=== PATIENT | female | born 1935 | race Caucasian/White ===

== ENCOUNTER → 2018-05-08 13:27 | Outpatient (CLI) | payer MEDICARE, OTHER ==
[2014-06-04 09:59] VITALS: BMI 26.4
[~2018-05-08 13:27] MED LIST: ANTIVERT25 MG PO; BONIVA150 MG PO; COUMADIN3 MG PO; COUMADIN4 MG PO; DYAZIDE 37.5/251 CAP PO; FISH OIL 1,2001 CAP PO; HYDROCODON-ACE1 EAC7 PO; LEXAPRO5 MG PO; MULTIPLE VITAMI1 TA1 PO; NORVASC5 MG PO; OYST-CAL-5001 TAB PO; PROTONIX40 MG PO; TRAVOPROST 0.02.5 ML LEFT EYE; VALIUM 2 MG TAB2 MG PO; ZETIA10 MG PO
[2018-05-08 14:27] LABS: INR 1.68 (0.85-1.17); PROTIME 19.2 SECONDS (11.6-15.0)
== END | disposition home or self-care (01) ==
LOC: D.LABREF 13:27
PROVIDERS: Emergency Medicine
DX: Z51.81 Encounter for therapeutic drug level monitoring (principal); Z79.01 Long term (current) use of anticoagulants; I82.409 Acute embolism and thrombosis of unspecified deep veins of unspecified lower extremity

== ENCOUNTER → 2018-05-19 11:46 | Outpatient (CLI) | payer MEDICARE, OTHER ==
[2014-06-04 09:59] VITALS: BMI 26.4
[2018-05-19 13:02] LABS: INR 2.38 (0.85-1.17); PROTIME 25.3 SECONDS (11.6-15.0)
== END | disposition home or self-care (01) ==
LOC: D.LABREF 11:46
PROVIDERS: Emergency Medicine
DX: Z51.81 Encounter for therapeutic drug level monitoring (principal); Z79.01 Long term (current) use of anticoagulants

== ENCOUNTER → 2018-05-26 13:18 | Outpatient (CLI) | payer MEDICARE, OTHER ==
[2014-06-04 09:59] VITALS: BMI 26.4
[2018-05-26 17:20] LABS: INR 2.55 (0.85-1.17); PROTIME 26.7 SECONDS (11.6-15.0)
== END | disposition home or self-care (01) ==
LOC: D.LABREF 13:18
PROVIDERS: Emergency Medicine
DX: Z51.81 Encounter for therapeutic drug level monitoring (principal); Z79.01 Long term (current) use of anticoagulants

== ENCOUNTER → 2018-06-25 12:47 | Outpatient (CLI) | payer MEDICARE, OTHER ==
[2014-06-04 09:59] VITALS: BMI 26.4
[2018-06-25 13:26] LABS: INR 2.45 (0.85-1.17); PROTIME 25.9 SECONDS (11.6-15.0)
== END | disposition home or self-care (01) ==
LOC: D.LABREF 12:47
PROVIDERS: Emergency Medicine
DX: Z51.81 Encounter for therapeutic drug level monitoring (principal); Z79.01 Long term (current) use of anticoagulants

== ENCOUNTER 2018-10-19 17:29 | Inpatient (IN) | payer MEDICARE, OTHER ==
--- NOTE | 2018-10-19 17:15 | NUR ---
ADMITTED TO [facility] LONG TERM UNIT VIA STRETCHER PER EMS FROM [facility]. ADMITTED FOR SUICIDAL THREAT. " I AM GOING TO JUMP OUT OF 3RD FLOOR WINDOW." SHE WANTS TO GO BE WITH HIM IN [facility]. SHE IS LEGALLY BLIND, BILATERALLY. SHE WEARS PARTIALS ON UPPER AND LOWER. CODE STATUS IS DNR WITH PAPERS IN FRONT OF CHART. POA IS ANEL GOLD = [phone] CODE WORD= [place].
[2018-10-19] MEDS ORDERED: LIDODERM 5 %1 PATCH TRANSDERM (19:57)
[2018-10-19] MEDS ORDERED: DORZOLAMIDE LEFT EYE (20:06)
[2018-10-19] MEDS ORDERED: TIMOLOL LEFT EYE (20:06)
[2018-10-19] MEDS ORDERED: TAPAZOLE 5 MG TA5 MG PO (20:08)
[2018-10-19] MEDS ORDERED: ACETAMINOPHEN500 M1 PO (20:09)
[2018-10-19] MEDS ORDERED: MIRALAX17 GM PO (20:10)
[2018-10-19] MEDS ORDERED: ZOFRAN4 MG PO (20:11)
[2018-10-19] MEDS ORDERED: TRAVATAN Z2.5 ML LEFT EYE (20:12)
[2018-10-19] MEDS ORDERED: [UNRECOGNIZED DRUG - OTHER] EACH EYE (20:15)
--- NOTE | 2018-10-19 21:29 | NUR ---
RECEIVED IN DAYROOM. WHEELING AROUND IN WHEELCHAIR. CALM AND COOPERATIVE WITH CARE AND ASSESSMENT. DENIES THOUGHTS OF SELF HARM AT THIS TIME. STATES PEOPLE THINKING SHE WANTED TO COMMIT SUICIDE WAS A MISTAKE. STATES SHE ONLY WANTED TO LOOK OUT THE WINDOW AND WASNT TRYING TO JUMP OUT OF WINDOW. REDIRECT AND REORIENT NEEDED. GETTING READY FOR BED AT THIS TIME. CONTINUE PLAN OF CARE.
[2018-10-20 02:22] VITALS: BP 128/76
[2018-10-20 06:33] VITALS: BP 128/76; BMI 25.2
[2018-10-20 06:47] LABS: BASOPHILS 0.5 % (0-2); EOSINOPHILS 3.6 % (0-7); HEMATOCRIT 45.4 % (36.0-48.0); HEMOGLOBIN 15.2 g/dL (12-16); LYMPHOCYTES 36.6 % (15-50); MCH 30.3 pg (26.0-34.0); MCHC 33.5 g/dL (31.0-37.0); MCV 90.6 fL (80.0-100.0); MEAN PLATELET VOLUME 11.1 fL (7.4-10.4); MONOCYTES 10.7 % (2-11); NEUTROPHILS 48.6 % (40-80); RBC 5.01 10x6/uL (4.00-5.40); WBC 5.8 10x3/uL (4.8-10.8)
[2018-10-20 07:02] LABS: PLATELET COUNT 243 10x3/uL (130-400)
[2018-10-20 07:17] LABS: INR 1.96 (0.85-1.17); PROTIME 21.7 SECONDS (11.6-15.0)
[2018-10-20 07:38] LABS: ALBUMIN 3.6 g/dL (3.4-5.0); ANION GAP 14.5 mmol/L (8-16); BILIRUBIN - TOTAL 0.47 mg/dL (0.2-1.3); CALCIUM 9.3 mg/dL (8.5-10.1); CARBON DIOXIDE 29.2 mmol/L (21.0-32.0); CHOL - HDL RATIO 3.3 ratio (2.3-4.1); CREATININE - SERUM 0.8 mg/dL (0.6-1.3); POTASSIUM - SERUM 3.7 mmol/L (3.5-5.1); PROTEIN - SERUM 7.6 g/dL (6.4-8.2); THYROID STIMULATING HORMONE 1.21 uIU/mL (0.36-3.74)
[2018-10-20 07:56] VITALS: BMI 25.2
[2018-10-20 08:00] VITALS: BP 147/70
[2018-10-20 09:38] VITALS: BMI 25.1
--- NOTE | 2018-10-20 23:52 | NUR ---
RECEIVED IN PATIENT ROOM. GETTING READY FOR BED. CALM AND COOPERATIVE WITH CARE AND ASSESSMENT. DENIES THOUGHTS OF SELF HARM. REDIRECT AND REORIENT NEEDED. RESTING IN BED WITH EYES CLOSED AT THIS TIME. CONTINUE PLAN OF CARE.
[2018-10-21 05:11] LABS: VITAMIN D 25 HYDROXY 44.9 ng/mL (30.0-100.0)
[2018-10-21 07:17] LABS: RAPID PLASMA REAGIN Non Reactive (Non Reactive)
[2018-10-21 09:00] VITALS: BP 139/68
--- NOTE | 2018-10-21 12:50 | PSY ---
PATIENT NAME:MARÍA PEREZ MEDICAL RECORD: [id number] : 33 LOCATION:VernaTOOTIE Rehman5 ADMISSION DATE: 10/19/18 ACCOUNT: [id number] PSYCHIATRIC EVALUATION DATE OF EVALUATION: 10/20/18 IDENTIFYING DATA: The patient is 83 years old and she is admitted to the hospital on a voluntary basis. CHIEF COMPLAINT: None. HISTORY OF PRESENT ILLNESS: The patient lives at [facility]. The staff at [facility] report that she wanted to jump out of the second story window. She says that they quote her as saying that she was going to jump out of the third story window and that she wanted to go be with her in [facility]. The patient denies this. She says that she opened a window just to look out at the day and that she has never made such a statement. She endorses numerous neurovegetative depressive symptoms. She denies that she would seek to harm herself. PAST MEDICAL HISTORY: Significant for glaucoma in both eyes, which is obviously quite distressing to her. She has a history of DVTs or pulmonary embolism, urinary tract infection, lumbar radiculopathy, spinal stenosis, osteoporosis, and angina. She also has a history of hypertension and hyperlipidemia. PAST PSYCHIATRIC HISTORY: Significant for depression, which has been treated as an outpatient. FAMILY HISTORY: Noncontributory. ALLERGIES: PENICILLIN, CODEINE, AND LIPITOR. MEDICATIONS: Include warfarin, lidocaine patch, Tapazole, Norvasc, omega 3 fish oil, Zetia, Protonix, multiple eye drops. SOCIAL HISTORY: The patient is originally from [facility]. Her [place] 8 years ago. They have no children. All of her other relatives are in [facility] and virtually all are . She has no close friends, family, or relatives and has lived in the assisted living center at [facility] for 5-6 years. MENTAL STATUS EXAMINATION: The patient is awake, alert and oriented to person, place and somewhat to time and situation. Her mood is depressed. Her affect is constricted. Thought processes are circumstantial. Memory, concentration, and abstraction abilities are moderately impaired and she denies that she would actively seek to harm herself or others as well as any overt psychotic symptoms. ASSETS: Stable living environment. LIABILITIES: Limited insight. DIAGNOSTIC IMPRESSION: AXIS I: Major depression, severe, recurrent without psychotic features. AXIS II: None. AXIS III: Hypertension, macular degeneration, glaucoma, hypercholesterolemia, peripheral vascular disease. AXIS IV: Moderate. AXIS V: Global assessment of functioning is 30. PLAN: At this time, the patient is admitted to the hospital secondary to suicidal statements. She denies them. She will be started on antidepressant medication. Her long-term prognosis is guarded. TRANSINT:[id number] Voice Confirmation ID: [id number] DOCUMENT ID: [id number] BRETT DEMPSEY MD at 1250 CC: [id number] DICTATION DATE: 10/20/18 1140 MACHINE OPERATORS: 10/20/18 1159 ADM IN [place] [id number] [place] [id number]
[2018-10-21 16:11] LABS: FOLATE (FOLIC ACID) - SERUM >20.0 ng/mL (>3.0)
--- NOTE | 2018-10-21 18:32 | NUR ---
PATIENT AWAKE AND ALERT X2. CALM AND COOPERATIVE WITH CARE AND ASSESSMENT. COMPLIANT WITH TAKING MEDS. DENIES SI. HARM OF SELF. REDIRECT AND REORIENT NEEDED. WILL CONTINUE PLABN OF CARE.
[2018-10-21 20:00] VITALS: BP 135/73
--- NOTE | 2018-10-21 21:02 | NUR ---
RECEIVED IN DAYROOM. WATCHING TV. CALM AND COOPERATIVE WITH CARE AND ASSESSMENT. DENIES THOUGHTS OF SELF HARM. REDIRECT AND REORIENT NEEDED. CONTINUES TO SIT AND WATCH TV AT THIS TIME. CONTINUE PLAN OF CARE.
[2018-10-22 08:37] VITALS: BP 137/96
--- NOTE | 2018-10-22 15:03 | PN ---
PATIENT:MARÍA PEREZ MEDICAL RECORD: [id number] LOCATION:FABIANA Rehman ADMISSION DATE: 10/19/18 PROGRESS NOTE DATE OF SERVICE: 10/21/2018 SUBJECTIVE: The patient's case was discussed with staff. She has no new complaint. OBJECTIVE: The patient denies intent to harm herself or others. She tolerates her medicines well. She has a depressed mood but no active thoughts of harming herself or others. ASSESSMENT: Major depression. PLAN: The patient will be maintained on current medicines, which I have reviewed. Her long-term prognosis is guarded. I am going to start her on a low dose of Lexapro for its antidepressant effect. TRANSINT:[id number] Voice Confirmation ID: [id number] DOCUMENT ID: [id number] BRETT DEMPSEY MD at 1503 CC: [id number] DICTATION DATE: 10/21/18 1531 VACUUM APPLICATOR OPERATOR: 10/21/18 2330 ADM IN [place] [id number] [place] [address]
--- NOTE | 2018-10-22 15:35 | NUR ---
ORIENTED X 3.DENIES WANTING TO HURT HERSELF,BUT WILL TELL STAFF IF SHE HAS THOUGHTS OF HARMING SELF.IS COMPLIANT WITH STAFF AND MEDS.WILL CONTINUIE WITH PLAN OF CARE,MONITOR FOR CHANGES AND SAFETY.
[2018-10-22 20:00] VITALS: BP 130/61
[2018-10-23 07:57] LABS: INR 1.56 (0.85-1.17)
[2018-10-23 09:26] VITALS: BP 141/72
--- NOTE | 2018-10-23 10:00 | NUR ---
RECEIVED PATIENT IN DINING ROOM FOR B'FAST, ALERT, CALM, COOPERATIVE, TAKES MEDS WHOLE. MEDS ADMIN PER ORDERS WITH COMPLETE MED COMPLIANCE NOTED. NO S/S ADVERSE REACTION TO MEDS. COOPERATIVE WITH GROUP THERAPY AND STAFF REQUESTS. NO AGGRESSION NOTED. CONT POC INCLUDING MEDS AND GROUP THERAPY DIRECTED.
--- NOTE | 2018-10-23 15:53 | PN ---
PATIENT:MARÍA PEREZ MEDICAL RECORD: [id number] LOCATION:FABIANA Rehman ADMISSION DATE: 10/19/18 PROGRESS NOTE DATE OF SERVICE: 10/22/2018 SUBJECTIVE: The patient's case was discussed with staff. She has no new complaint. OBJECTIVE: The patient denies intent to harm herself or others. She is tolerating her medicines well. ASSESSMENT: Major depression. PLAN: The patient has no suicidal thoughts. She has received her first dose of antidepressant and tolerated it well. I anticipate she can be transitioned out of the hospital soon. TRANSINT:[id number] Voice Confirmation ID: [id number] DOCUMENT ID: [id number] BRETT DEMPSEY MD at 1553 CC: [id number] DICTATION DATE: 10/22/18 1600 ECDIS N NAVIGATION OPERATOR: 10/22/18 1725 ADM IN [place] [id number] [place] [address]
--- NOTE | 2018-10-23 16:17 | NUR ---
Called Dr. Calderon to see about getting an H&P for Dr. Black about the coumadin.
[2018-10-23 20:03] VITALS: BP 136/67
--- NOTE | 2018-10-23 21:35 | NUR ---
PATIENT IS ORIENTED TO SELF, CAN MAKE NEEDS KNOWN, SPEAKS LOUDLE, DENIES S/I. COMPLIANT WITH EYE DROPS. WHEELCHAIR BOUND, WILLL FOLLOW POC
[2018-10-24 06:31] LABS: INR 1.78 (0.85-1.17); PROTIME 20.1 SECONDS (11.6-15.0)
--- NOTE | 2018-10-24 11:29 | PN ---
PATIENT:MARÍA PEREZ MEDICAL RECORD: [id number] LOCATION:FABIANA ZaidiKirk ADMISSION DATE: 10/19/18 PROGRESS NOTE DATE OF SERVICE: 10/23/2018 SUBJECTIVE: The patient's case was discussed with staff. She has no new complaint. OBJECTIVE: The patient denies intent to harm herself or others. She is tolerating her medicines well. ASSESSMENT: Major depression. PLAN: The patient will be treated with Lexapro at a slightly higher dose. She will be monitored for clinical changes associated with its use. Her long-term prognosis is guarded. Brief supportive and educational interventions were made. I anticipate she can be transitioned out of the hospital soon. TRANSINT:[id number] Voice Confirmation ID: [id number] DOCUMENT ID: [id number] BRETT DEMPSEY MD at 1129 CC: [id number] DICTATION DATE: 10/23/18 1730 SERVICE CAR OPERATOR: 10/23/18 2125 ADM IN [place] [id number] [place] [id number]
[2018-10-24 11:51] VITALS: BP 147/71
[2018-10-24 20:42] VITALS: BP 124/67
--- NOTE | 2018-10-24 21:23 | NUR ---
B) Patient is alert and oriented to person and place, legally blind but can see some, I) Administered scheduled medications as orderd, monitored for falls, R) Mediation compliant, calm and cooperative P) Continue plan of care.
[2018-10-25 07:00] VITALS: BP 148/73
--- NOTE | 2018-10-25 07:30 | NUR ---
REC'D PT IN HALLWAY BY NURSES STATION. PT IS ALERT AND ORIENTED TO PERSON. CALM AND COOPERATIVE WITH ASSESSMENT. MED COMPLIANT. REDIRECT AND REORIENT NEEDED. NO AGGRESSION OR SI NOTED OR VOICED. FALL PRECAUTIONS IN [place]. WILL CPOC.
[2018-10-25 08:26] VITALS: BP 148/73
--- NOTE | 2018-10-25 12:15 | PN ---
PATIENT:MARÍA PEREZ MEDICAL RECORD: [id number] LOCATION:FABIANA VernaHafsaKirk ADMISSION DATE: 10/19/18 PROGRESS NOTE DATE OF SERVICE: 10/24/2018 SUBJECTIVE: The patient's case was discussed with staff. She has no new complaint. OBJECTIVE: The patient is in good behavioral control with limited insight about her condition. She does tolerate her medicines well. ASSESSMENT: No change in diagnoses. PLAN: Current medicines and therapies have been reviewed, both will be maintained. Long-term prognosis is guarded. TRANSINT:[id number] Voice Confirmation ID: [id number] DOCUMENT ID: [id number] BRETT DEMPSEY MD at 1215 CC: [id number] DICTATION DATE: 10/24/18 1247 ENTERPRISE SYSTEMS ADMINISTRATOR: 10/24/18 1339 ADM IN [place] [id number] [place] [address]
[2018-10-25 20:56] VITALS: BP 148/67
--- NOTE | 2018-10-26 01:31 | NUR ---
RECEIVED IN DAYROOM. RESTING QUIETLY IN A CHAIR WITH STAFF AND PEERS AT HER SIDE. NO STATEMENTS OF SELF HARM VOICE. ENCOURAGE TO EXPRESS NEEDS. RESTING IN BED WITH EYES CLOSED. CONTINUE PLAN OF CARE
[2018-10-26 07:00] VITALS: BP 153/76
--- NOTE | 2018-10-26 10:00 | NUR ---
AWAKE AND ALERT THIS AM. DENIES SI. CALM AND COOPERATIVE WITH CARE AND ASSESSMENT. COMPLIANT WITH MEDICATIONS. REDIRECT AND REORIENT NEEEDED. FALL PRECAUTIONS IN PLACE. WILL CONTINUE POC.
--- NOTE | 2018-10-26 10:02 | NUR ---
Nutrition follow up Regular diet with 63% average po intake Last BM 10/24 Weight 146lb- no weight loss RD following
--- NOTE | 2018-10-26 14:32 | PN ---
PATIENT:MARÍA PEREZ MEDICAL RECORD: [id number] LOCATION:DejuanLIZZYJuan ZaidiKirk ADMISSION DATE: 10/19/18 PROGRESS NOTE DATE OF SERVICE: 10/25/2018 SUBJECTIVE: The patient's case was discussed with staff. She has no new complaint. OBJECTIVE: The patient is depressed, but not suicidal. She is tolerating her medications well. ASSESSMENT: Major depression. PLAN: Current medicines have been reviewed and will be maintained. Long-term prognosis is guarded. TRANSINT:[id number] Voice Confirmation ID: [id number] DOCUMENT ID: [id number] BRETT DEMPSEY MD at 1432 CC: [id number] DICTATION DATE: 10/25/18 1253 SHAKE CUTTER: 10/25/18 1437 ADM IN [place] [id number] [place] [address]
[2018-10-26 20:00] VITALS: BP 150/66
--- NOTE | 2018-10-26 20:28 | NUR ---
RECEIVED IN DAYROOM. SITTING IN A CHAIR WITH PEERS AT HIS SIDE. NO THOUGHTS OF SELF HARM VOICED AT THIS TIME. CALM AND COOPERATIVE WITH CARE AND ASSESSMENT. ENCOURAGE TO EXPRESS NEEDS. SITTING QUIETLY AT THIS TIME. CONTINUE PLAN OF CARE
[2018-10-27 07:00] LABS: INR 2.5 (0.85-1.17); PROTIME 26.3 SECONDS (11.6-15.0)
[2018-10-27 08:30] VITALS: BP 163/79
--- NOTE | 2018-10-27 12:18 | NUR ---
RECEIVED PATIENT IN DAYROOM, ALERT, CALM, ORIENTED, SOME FORGETFULNESS NOTED. DENIES S.I. MEDS ADMIN PER MED NURSE WITH COMPLETE MED COMPLIANCE NOTED. COOPERATIVE WITH GROUP ACTIVITY AND STAFF REQUESTS. TRANSFERS SELF FROM W/C TO RECLINER WITH EASE. CONT POC INCLUDING MEDS AND GROUP THERAPY DIRECTED.
--- NOTE | 2018-10-27 13:17 | PN ---
PATIENT:MARÍA PEREZ MEDICAL RECORD: [id number] LOCATION:FABIANA Rehman ADMISSION DATE: 10/19/18 PROGRESS NOTE DATE OF SERVICE: 10/26/2018 SUBJECTIVE: The patient's case was discussed with staff. She has no new complaint. OBJECTIVE: The patient denies intent to harm herself or others. She tolerates her medicines well. ASSESSMENT: Major depression. PLAN: Current medicines have been reviewed. I anticipate she can be transitioned out of the hospital once placement is arranged. TRANSINT:[id number] Voice Confirmation ID: [id number] DOCUMENT ID: [id number] BRETT DEMPSEY MD at 1317 CC: [id number] DICTATION DATE: 10/26/18 1620 BURGLAR ALARM ASSEMBLER: 10/26/18 191 ADM IN [facility] [address] [place] [address]
--- NOTE | 2018-10-27 15:00 | NUR ---
[facility] CALLED YESTERDAY, TO CHECK ON PATIENTS STATUS REGARDING DISCHARGING. SPOKE WITH KRISTIAN. PLEASE CALL WHEN REACDY TO DISCHARGE AND THEY WILL CONTINUE CARE.
[2018-10-27 20:00] VITALS: BP 122/62
--- NOTE | 2018-10-27 21:11 | NUR ---
RECEIVED IN DAYROOM. RESTING IN A CHAIR WITH PEERS AT HER SIDE. CALM AND COOPERATIVE WITH CARE AND ASSESSMENT. DENIES THOUGHTS OF SELF HARM AT THIS TIME. CONTINUE PLAN OF CARE
[2018-10-28 10:20] VITALS: BP 122/59
--- NOTE | 2018-10-28 11:00 | NUR ---
AWAKE AND ALERT THIS AM. SHE IS LEGALLY BLIND, BUT CAN SEE SHADOWS. CALM AND COOPERATIVE WITH CARE AND ASSESSMENT. MEDICATION COMPLIANT. REDIRECT AND REORIENT NEEDED. WILL CONTINUE PLAN OF CARE.
--- NOTE | 2018-10-28 13:27 | PN ---
PATIENT:MARÍA PEREZ MEDICAL RECORD: [id number] LOCATION:VernaKEELYJuan ZaidiKirk ADMISSION DATE: 10/19/18 PROGRESS NOTE DATE OF SERVICE: 10/27/2018 SUBJECTIVE: The patient's case was discussed with staff. She has no new complaint. OBJECTIVE: The patient has no suicidal thoughts and is tolerating her medicines well. ASSESSMENT: Major depression. PLAN: The patient will be transitioned out of the hospital as soon as placement can be arranged. TRANSINT:[id number] Voice Confirmation ID: [id number] DOCUMENT ID: [id number] BRETT DEMPSEY MD at 1327 CC: [id number] DICTATION DATE: 10/27/18 1338 SCALING MACHINE OPERATOR: 10/27/18 1411 ADM IN [place] [id number] [place] [address]
--- NOTE | 2018-10-28 21:00 | NUR ---
PT. IS COMPLIANT WITH MEDS, ABLE TO MAKE NEEDS KNOWN, DENIES SUICIDAL IDEATION, LEGALLY BLIND, WILL FOLLOW POC
[2018-10-28 21:07] VITALS: BP 130/70
--- NOTE | 2018-10-29 14:55 | PN ---
PATIENT:MARÍA PEREZ MEDICAL RECORD: [id number] LOCATION:FABIANA Rehman ADMISSION DATE: 10/19/18 PROGRESS NOTE DATE OF SERVICE: 10/28/2018 SUBJECTIVE: The patient's case was discussed with staff. She has no new complaint. OBJECTIVE: The patient denies intent to harm herself or others. She is tolerating her medicines well. ASSESSMENT: No change in diagnoses. PLAN: Current medicines will be maintained. I anticipate she can be discharged out of the hospital soon. The assisted living center is not going to accept her back as a patient. In fact, they tell a very different story about what happened and in fact I learned some new details today that apparently she was hanging out of the window and they had to grab her by her feet. When asked about this, she continues to insist that is not true. She was simply looking out the window. TRANSINT:[id number] Voice Confirmation ID: [id number] DOCUMENT ID: [id number] BRETT DEMPSEY MD at 1455 CC: [id number] DICTATION DATE: 10/28/18 1352 EMS INSTRUCTOR: 10/28/18 1420 ADM IN [facility] [address] [place] [address]
--- NOTE | 2018-10-29 16:07 | NUR ---
B) The patient is awake and alert, she is legally blind, but she is able to make her needs known. She has poor insight into her situation. She is pleasant ans calm. She has visitors at this time. I) Provide prescribed meds. R) The patient is compliant with meds and unit milieu. She has not made any suicidal ideations or any depressive statements. P) Continue POC.
--- NOTE | 2018-10-29 16:58 | NUR ---
Tomasz Kuhn RN and this nurse have attempted a phone call to Dr. Casper office multiple times since Dr. Black requested that we find out the exact eye drop order. We have not been successful as the phone makes a busy signal.
--- NOTE | 2018-10-29 17:51 | NUR ---
The patient c/o headache rates it 5/10. Provided Tylenol ES PO.
[2018-10-29 20:43] VITALS: BP 140/70
--- NOTE | 2018-10-29 22:18 | NUR ---
PATIENT DENIES SUICIDAL IDEATIONS, MAKES NEEDS KNOWN, LEGALLY BLIND, COMPLIANT WITH MEDS. WILL FOLLOW POC
--- NOTE | 2018-10-30 07:37 | NUR ---
B) The patient is awake and alert. She is pleasant and calm. She has not mentioned any suicidal ideations. She self propels in a w/c. She is legally blind. I) Provide prescribed meds. R) The patient is compliant with meds and unit milieu. P) Continue POC.
[2018-10-30 09:14] LABS: INR 2.87 (0.85-1.17); PROTIME 29.4 SECONDS (11.6-15.0)
[2018-10-30 09:40] VITALS: BP 115/61
--- NOTE | 2018-10-30 15:38 | PN ---
PATIENT:MARÍA PEREZ MEDICAL RECORD: [id number] LOCATION:FABIANA Rehman ADMISSION DATE: 10/19/18 PROGRESS NOTE DATE OF SERVICE: 10/29/2018 SUBJECTIVE: The patient's case was discussed with staff. She has no new complaint. OBJECTIVE: The patient denies intent to harm herself or others. She is generally tolerating her medicines well. ASSESSMENT: No change in diagnoses. PLAN: The patient will be maintained on Lexapro, which is being used to treat her depressive illness. She will be monitored for clinical changes associated with its use. Her long-term prognosis is guarded. TRANSINT:[id number] Voice Confirmation ID: [id number] DOCUMENT ID: [id number] BRETT DEMPSEY MD at 1538 CC: [id number] DICTATION DATE: 10/29/18 1517 COMMERCIAL TRUCK DRIVER: 10/29/18 1540 ADM IN [place] [id number] [place] [address]
[2018-10-30 20:28] VITALS: BP 102/53
--- NOTE | 2018-10-31 03:53 | NUR ---
B.) Patient is Alert and oriented x4. Pt denies Suicidal ideation. I.) Provide PM medications R.) Patient compliant with PM medications. Provided medication education. P.) Continue Plan of Care.
[2018-10-31 09:29] VITALS: BP 128/65
--- NOTE | 2018-10-31 11:54 | PN ---
PATIENT:MARÍA PEREZ MEDICAL RECORD: [id number] LOCATION:FABIANA Rehman ADMISSION DATE: 10/19/18 PROGRESS NOTE DATE OF SERVICE: 10/30/2018 SUBJECTIVE: The patient's case was discussed with staff. She has no new complaint. OBJECTIVE: The patient is in good behavioral control with limited insight about her condition. She does tolerate her medicines well. ASSESSMENT: Major depression. PLAN: The patient showed significant improvement and continues to deny any suicidal thoughts. If this level of improvement continues, I anticipate she can be discharged from the hospital on Friday. She will have a new facility that has accepted her, and I think it would be best to wait until Friday rather than trying to settle her into a new facility on a Friday afternoon or . TRANSINT:[id number] Voice Confirmation ID: [id number] DOCUMENT ID: [id number] BRETT DEMPSEY MD at 1154 CC: [id number] DICTATION DATE: 10/30/18 1626 SCCM ADMINISTRATOR: 10/30/18 2303 ADM IN [facility] [address] [place] [address]
--- NOTE | 2018-10-31 14:56 | NUR ---
B) The patient is awake and alert, she is oriented to person, she knows she is in the hospital, but she does not know where. She does know she is leaving next week and going to [place]. She did ask about it and did relay to her that it is a nice place and she will probably like it. I) Provide prescribed meds. Encourage the patient to participate in groups. P) Continue POC.
[2018-10-31 22:04] VITALS: BP 107/54
--- NOTE | 2018-11-01 00:24 | NUR ---
B.) Patient is alert and oriented x4. She is pleasant and socializes with other residents very well. I.) Provided prescribed PM medications. R.) Patient is compliant with PM medications. P.) Continue Plan of Care
[2018-11-01 06:20] LABS: INR 1.9 (0.85-1.17); PROTIME 21.1 SECONDS (11.6-15.0)
[2018-11-01 07:00] VITALS: BP 151/74
--- NOTE | 2018-11-01 13:01 | PN ---
PATIENT:MARÍA PEREZ MEDICAL RECORD: [id number] LOCATION:FABIANA Rehman ADMISSION DATE: 10/19/18 PROGRESS NOTE DATE OF SERVICE: 10/31/2018 SUBJECTIVE: The patient's case was discussed with staff. She has no new complaint. OBJECTIVE: The patient is in good behavioral control with limited insight about her condition. She is tolerating her medicines well. ASSESSMENT: Major depression. PLAN: I anticipate the patient can be transitioned out of the hospital on Friday. Her long-term prognosis is guarded. TRANSINT:[id number] Voice Confirmation ID: [id number] DOCUMENT ID: [id number] BRETT DEMPSEY MD at 1301 CC: [id number] DICTATION DATE: 10/31/18 1212 INSIDE SOLAR SALES CONSULTANT: 10/31/18 1236 ADM IN [facility] [address] [place] [address]
[2018-11-01] MEDS ORDERED: CYCLOBENZAPRINE10 MG PO (13:07)
[2018-11-01] MEDS ORDERED: LEXAPRO20 MG PO (13:08)
[2018-11-01] MEDS ORDERED: Systane 0.3-0.4% Eye EACH EYE (13:08)
[2018-11-01] MEDS ORDERED: TRUSOPT 2 % OPT10 ML OP (13:08)
[2018-11-01] MEDS ORDERED: ZADITOR5 ML EACH EYE (13:08)
[2018-11-01] MEDS ORDERED: ASPERCREME 5 OZ5 OZ TP (13:08)
[2018-11-01] MEDS ORDERED: TIMOPTIC 0.5 % O5 ML OP (13:09)
[2018-11-01] MEDS ORDERED: FLORAJEN3 CAPS460 MG PO (13:09)
--- NOTE | 2018-11-01 18:39 | NUR ---
ALERT AND ORIENTED.DENIES SUICIDAL IDEATIONS.COMPLIANT WITH STAFF AND MEDS.WILL CONTINUE WITH PLAN OF CARE,MONITOR FOR CHANGES AND SAFETY.
[2018-11-01 23:14] VITALS: BP 122/63
--- NOTE | 2018-11-01 23:45 | NUR ---
B.) Patient is alert and oriented to person, time, and situation. She can make needs known. She denies suicidal ideation. I.) Provided PM medications. Reoriented to place. R.) Compliant with PM medications. Patient verbalizes that she is at [facility]. P.) Continue Plan of Care
[2018-11-02 07:00] VITALS: BP 129/63
--- NOTE | 2018-11-02 09:30 | NUR ---
RECEIVED PATIENT IN DINING ROOM FOR B'FAST, ALERT, ORIENTED, PLEASANT MOOD, COOPERATIVE, DENIES SUICIDAL IDEATIONS. MEDS ADMIN PER ORDERS WITH COMPLETE MED COMPLIANCE NOTED. COOPERATIVE WITH POC AND GROUP ACTIVITY. CONT POC INCLUDING MEDS AND GROUP THERAPY DIRECTED.
--- NOTE | 2018-11-02 12:26 | NUR ---
Nutrition follow up Regular diet with 68% average po intake BM yesterday Weight 150.6lb-no weight loss RD following
--- NOTE | 2018-11-02 15:13 | PN ---
PATIENT:MARÍA PEREZ MEDICAL RECORD: [id number] LOCATION:FABIANA Rehman ADMISSION DATE: 10/19/18 PROGRESS NOTE DATE OF SERVICE: 11/01/2018 SUBJECTIVE: The patient's case was discussed with staff. She has no new complaint. OBJECTIVE: The patient is in good behavioral control with limited insight about her condition. She is tolerating her medicines well. ASSESSMENT: No change in diagnoses. PLAN: Current medicines and therapies have been reviewed. She has no evidence of acute or direct dangerousness. I anticipate she can be transitioned out of the hospital soon. TRANSINT:[id number] Voice Confirmation ID: [id number] DOCUMENT ID: [id number] BRETT DEMPSEY MD at 1513 CC: [id number] DICTATION DATE: 11/01/18 1306 NETWORK SECURITY ANALYST: 11/01/18 1646 ADM IN [place] [id number] [place] [address]
--- NOTE | 2018-11-02 19:21 | NUR ---
TYLENOL 500 MG ADMIN PO FOR BACK PAIN 08/19.
--- NOTE | 2018-11-02 21:00 | NUR ---
PATIENT SITTING IN WHEELCHAIR. RESP EVEN AND NONLABORED. NO ACUTE DISTRESS NOTED. MEDICATION COMPLIANT. PLESANT WITH STAFF AND PEERS. WILL CONT PLAN OF CARE.
[2018-11-03 05:15] VITALS: BP 109/53
[2018-11-03 11:56] VITALS: BP 123/59
--- NOTE | 2018-11-03 14:56 | NUR ---
IS ORIENTED X 3.COMPLIANT WITH STAFF AND MEDS.DENIES SUICIDAL THOUGHTS.DISCHARGED TO [facility].HAS ALL PERSONAL ITEMS AND INSTRUCTIOONS.
--- NOTE | 2018-11-03 15:19 | PN ---
PATIENT:MARÍA PEREZ MEDICAL RECORD: [id number] LOCATION:FABIANA Rehman ADMISSION DATE: 10/19/18 PROGRESS NOTE DATE OF SERVICE: 11/02/2018 SUBJECTIVE: The patient's case was discussed with staff. She has no new complaint. OBJECTIVE: The patient is in good behavioral control. She has no thoughts of harming herself or others and is tolerating her medicines well. ASSESSMENT: Major depression. PLAN: The patient was to be discharged to an assisted living center today. Unfortunately, arrangements could not be made regarding moving her personal effects until today, so she is going to be discharged tomorrow. TRANSINT:[id number] Voice Confirmation ID: [id number] DOCUMENT ID: [id number] BRETT DEMPSEY MD at 1519 CC: [id number] DICTATION DATE: 11/02/18 1529 CERAMIC MAKER DEMONSTRATOR: 11/02/18 1711 ADM IN [place] [address] [place] [address]
--- NOTE | 2018-11-04 12:39 | PN ---
PATIENT:MARÍA PEREZ MEDICAL RECORD: [id number] LOCATION:FABIANA Rehman ADMISSION DATE: 10/19/18 PROGRESS NOTE DATE OF SERVICE: 11/03/2018 SUBJECTIVE: The patient's case was discussed with staff. She has no new complaint. OBJECTIVE: The patient denies intent to harm herself or others. She is tolerating her medicines well. She has no evidence of cognitive impairment. She is not depressed and has no thoughts of harming herself. ASSESSMENT: Major depression. PLAN: The patient will be transitioned out of the hospital today. Her long-term prognosis is guarded. TRANSINT:[id number] Voice Confirmation ID: [id number] DOCUMENT ID: [id number] BRETT DEMPSEY MD at 1239 CC: [id number] DICTATION DATE: 11/03/18 1534 DYNAMO REPAIRER: 11/03/181955 DIS IN 11/03/18 [facility] [address] [place] [address]
--- NOTE | 2018-11-05 08:21 | DS ---
PATIENT:MARÍA PEREZ :33 MEDICAL RECORD: [id number] DISCHARGE SUMMARY ADMISSION DATE: 10/19/18 DISCHARGE DATE: 11/03/18 IDENTIFYING DATA: The patient is 83 years old and she was admitted to the hospital on a voluntary basis for suicidal threats. The patient lives in an assisted living center. The staff says she was wanting to jump out of a second story window to kill herself. She denies that this happened. She says she just wanted to see out of the window and did not want to hurt herself. Staff tells a completely different story and in fact they say they had to grab her and restrain her from jumping out of the window. She denies this. HOSPITAL COURSE: The patient was admitted to the hospital and fully evaluated from both a medical, psychological, and social standpoint. She was diagnosed with major depression based on her endorsement of individual neurovegetative depressive symptoms, but a denial of any overall feeling of depression as well as thoughts of self-harm. She was treated with antidepressant medicine throughout the course of the hospitalization on a daily basis. Denied that she wanted to hurt herself. She was subsequently returned to an assisted living center. She was returned to a different facility and placed on the first floor. DISCHARGE DIAGNOSES: AXIS I: Major depression, severe, recurrent without psychotic features. AXIS II: None. AXIS III: Hypertension, macular degeneration, glaucoma, hypercholesterolemia, and peripheral vascular disease. AXIS IV: Moderate. AXIS V: Global assessment of functioning is 35. PLAN: At the time of discharge, the patient was in good behavioral control with limited insight about her condition. She continued to deny any thoughts of harming herself or others as well as denying any history of wanting to harm herself. Her long-term prognosis is guarded. Both supportive and educational interventions were made. TRANSINT:[id number] Voice Confirmation ID: [id number] DOCUMENT ID: [id number] BRETT DEMPSEY MD at 0821 CC: [id number] DICTATION DATE: 11/04/18 1246 JEWELRY FINISHER: 11/05/18 0537 DIS IN 11/03/18 [id number] [place] [address]
== END 2018-11-03 14:50 | disposition home or self-care (01) | DRG 885 ==
LOC: D.PSYCH 17:29
PROVIDERS: Family Medicine; ADMIT Psychiatry & Neurology Psychiatry; ATTEND Psychiatry & Neurology Psychiatry
DX: F33.9 Major depressive disorder, recurrent, unspecified (principal); L03.116 Cellulitis of left lower limb; I11.0 Hypertensive heart disease with heart failure; I50.9 Heart failure, unspecified; E05.90 Thyrotoxicosis, unspecified without thyrotoxic crisis or storm; K21.9 Gastro-esophageal reflux disease without esophagitis; E78.5 Hyperlipidemia, unspecified; H40.9 Unspecified glaucoma; K59.00 Constipation, unspecified; R26.9 Unspecified abnormalities of gait and mobility; M19.90 Unspecified osteoarthritis, unspecified site; G89.29 Other chronic pain; M62.838 Other muscle spasm